=== PATIENT | female | born 1950 | race Caucasian/White ===

== ENCOUNTER 2019-02-10 06:42 | Day surgery (SDC) | payer MEDICARE, MEDICAID ==
[2019-02-10] MEDS ORDERED: KETOROLAC 0.5% OPHT DROP 3 ML BOTTLE ONE (06:59)
[2019-02-10] MEDS ORDERED: CIPROFLOXACIN 0.3% OPHT DROP 2.5 ML BOTTLE ONE (06:59)
[2019-02-10] MEDS ORDERED: PHENYLEPHRINE 2.5% OPHT DROP 2 ML BOTTLE ONE (07:00)
[2019-02-10] MEDS ORDERED: BALANCED SALT IRRIG SOLN COMB1 500 ML, EPINEPHRINE-PF 1:1000 0.5 MG IO ONE ×2 (07:00)
[2019-02-10] MEDS ORDERED: CYCLOPENTOLATE 1% OPHT DROP 2 ML BOTTLE ONE (07:00)
[2019-02-10] MEDS ORDERED: TROPICAMIDE 1% OPHT DROP 3 ML BOTTLE ONE (07:00)
[2019-02-10] MEDS ORDERED: FENTANYL CITRATE 100 MCG/2 ML AMPUL ONE (07:25)
[2019-02-10] MEDS ORDERED: PHENYLEPHRINE 10% OPHT DROP 5 ML BOTTLE ONE (07:28)
[2019-02-10] MEDS ORDERED: LIDOCAINE-MPF 2% 5 ML VIAL ONE (07:39)
[2019-02-10] MEDS ORDERED: MOXIFLOXACIN HCL 3 ML OPHT DROPS ONE (07:39)
[2019-02-10] MEDS ORDERED: TIMOLOL MALEATE 0.5% OPHT DROP 5 ML BOTTLE ONE (07:40)
[2019-02-10] MEDS ORDERED: ACETYLCHOLINE CHLORIDE 1% OPHT 1 EA KIT ONE (07:40)
[2019-02-10] MEDS ORDERED: BALANCED SALT IRRIG SOLN COMB2 15 ML IRRIG.SOLN ONE (07:40)
[2019-02-10] MEDS ORDERED: HYALURONATE SODIUM 12.8 MG/0.8 ML DISP.SYRIN ONE (07:40)
[2019-02-10] MEDS ORDERED: NEO/POLYMYX B/DEXAME OPHT OINT 3.5 GM TUBE ONE (07:40)
[2019-02-10] MEDS ORDERED: HYALURONIDASE,OVINE 200 UNITS/ML VIAL ONE (07:40)
[2019-02-10] MEDS ORDERED: TETRACAINE HCL 0.5% OPHT DROP 2 ML BOTTLE ONE (07:40)
[2019-02-10] MEDS ORDERED: HYALURONATE SODIUM 8.5 MG/0.85 ML DISP.SYRIN ONE (07:40)
[2019-02-10] MEDS ORDERED: BUPIVACAINE 0.25% 30 ML VIAL ONE (07:41)
[2019-02-10] MEDS ORDERED: BALANCED SALT IRRIG SOLN COMB1 0 ML ONE (07:41)
[2019-02-10] MEDS ORDERED: IV NORMAL SALINE 250 ML BAG IV ONE (07:51)
[2019-02-10] MEDS ORDERED: LIDOCAINE-MPF 2% 5 ML VIAL MC ONE (07:51)
[2019-02-10] MEDS ORDERED: IRR STERIL WATER FOR IRR 1000 ML BOTTLE IR ONE (07:51)
[2019-02-10] MEDS ORDERED: ONDANSETRON 4 MG/2 ML VIAL ONE (08:47)
== END 2019-02-10 10:30 ==
LOC: DS 06:42
PROVIDERS: ATTEND Ophthalmology
DX: E11.36 Type 2 diabetes mellitus with diabetic cataract (principal); I12.0 Hypertensive chronic kidney disease with stage 5 chronic kidney disease or end stage renal disease; E11.22 Type 2 diabetes mellitus with diabetic chronic kidney disease; N18.6 End stage renal disease; Z99.2 Dependence on renal dialysis; Z98.890 Other specified postprocedural states; Z79.899 Other long term (current) drug therapy; E66.01 Morbid (severe) obesity due to excess calories; I21.3 ST elevation (STEMI) myocardial infarction of unspecified site; Z86.73 Personal history of transient ischemic attack (TIA), and cerebral infarction without residual deficits; Z88.8 Allergy status to other drugs, medicaments and biological substances; D64.9 Anemia, unspecified
CPT/HCPCS: 66984; 71045; 82962 ×2; J0171; J2405; J3010; J3471; J3490 ×3; J7321 ×2; V2632; A4217; A4663; J7030; J7050